=== PATIENT | female | born 1975 | race Caucasian/White ===

== ENCOUNTER 2016-10-29 09:23 | Emergency (ER) | payer OTHER ==
[~2016-10-29] VITALS: Ht 165.1 cm; Wt 63.5 kg
[~2016-10-29 09:23] MED LIST: MOBIC15 M1 PO
[2016-10-29 09:28] VITALS: BP 129/85
--- NOTE | 2016-10-29 09:38 | ED NECK/BACK PAIN COMPLAINT ---
History of Present Illness General Chief Complaint: Low Back Pain/Injury Stated Complaint: LOW BACK PAIN X 5 DAYS Source: patient Exam Limitations: no limitations Vital Signs & Intake/Output Vital Signs & Intake/Output ED Intake and Output 10/30 0000 10/29 1200 Intake Total 0 Output Total Balance 0 Intake, Oral 0 Patient 140 lb Weight Allergies Coded Allergies: iodine (RASH 07/03/16) Reconcile Medications Cyclobenzaprine HCl 10 MG TABLET 1 TAB PO QPM PRN muscle spasms Meloxicam (Mobic) 15 MG TABLET 1 TAB PO DAILY PRN pain Triage Note: COMPLAINS OF LOW BACK PAIN SINCE SATURDAY STATES THAT SHE WAS CLEANING THE HOUSE AND IT STRATED TO BOTHER HER Triage Nurses Notes Reviewed? yes Onset: Gradual Duration: day(s): (5) Timing: recent history Quality/Severity: moderate Location: lumbar spine, paraspinous muscles Radiation: none Context: turning/bending Method of Injury: twisted Loss of Consciousness: no loss of consciousness Modifying Factors: immobilization : No Patient currently breastfeeds: No HPI: Patient is a 40-year-old female presenting to the emergency Department chief complaint of low back pain after cleaning. Symptoms have been the past couple days. Pain is currently moderate worse with movement and palpation. Has been using [id number] Tylenol without relief. Denies any urinary incontinence or retention. Pain does not radiate. No history of surgical intervention on the back. Denies abdominal pain. Denies constipation. No urinary frequency urgency or dysuria. Denies chance of . (JAZZ VU) Past History Travel History Traveled to [place] past 21 day No Medical History Any Pertinent Medical History? 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 No (JAZZ VU) Review of Systems Review of Systems Constitutional: Reports: no symptoms. Comments Review of systems: See HPI, All other systems negative. Constitutional, no chills fever or weight loss HEENT: No visual changes no sore throat no congestion Cardiovascular: No chest pain Skin, no jaundice no rashes Respiratory: No dyspnea cough sputum or hemoptysis GI: No nausea no vomiting : No dysuria No hematuria Muscle skeletal: no neck pain, Neurologic: No numbness no confusion Psych: No stress anxiety Immunology: No splenectomy or history of AIDS (JAZZ VU) Physical Exam Physical Exam General Appearance: well developed/nourished, no apparent distress, alert, awake , comfortable Neck: normal inspection, supple, full range of motion, normal alignment Comments: Well-developed well-nourished person in no acute distress HEENT: Nose is atraumatic. Neck: Supple, no lymphadenopathy, normal range of motion without pain or tenderness, no C-spine tenderness. Full range of motion. Back: Tenderness palpation in the lumbar paraspinal muscles, no bony tenderness. Negative modified straight leg raise bilaterally. Pain more with forward flexion. Cardiovascular: normal JVP Respiratory: No respiratory distress. Extremity: No edema, Neuro: Alert oriented x3, motor sensory normal, patellar reflexes are 2+ bilaterally. Skin: No appreciable rash on exposed skin, skin is warm and dry. Psych: Mood and affect is normal, memory and judgment is normal. (JAZZ VU) Progress Differential Diagnosis: muscle strain, contusion, pyelonephritis, hydronephrosis , UTI, herniated disc, cauda equina Plan of Care: Current Medications Sig/Canelo Start time Last Medication Dose Stop Time Status Admin Ketorolac 30 MG ONE ONE 10/29 0945 AC Tromethamine 10/29 0946 (Toradol) Comments: Likely muscle strain. No bony tenderness of exam. Neurologically intact. No signs of cauda equina. Patient will be treated symptomatically and follow up with her primary care physician. (JAZZ VU) Departure Departure Time of Disposition: 943 Disposition: HOME OR SELF CARE Condition: Stable Clinical Impression Primary Impression: Back pain Qualifiers: Back pain location: low back pain Chronicity: unspecified Back pain laterality: bilateral Sciatica presence: without sciatica Qualified Code: M54.5 - Low back pain Referrals: PATIENT HAS NO PRIMARY CARE DR (PCP/Family) [facility]erred to [facility] No Additional Instructions: Follow-up with her primary care physician call to make an appointment. Take medications as prescribed. Avoid heavy lifting. Your prescriptions were sent to [facility] pharmacy. Departure Forms: Customer Survey General Discharge Information Prescriptions: Current Visit Scripts Cyclobenzaprine HCl 1 TAB PO QPM PRN muscle spasms #10 TAB Meloxicam (Mobic) 1 TAB PO DAILY PRN pain #30 TAB (JAZZ VU) PA/ROLL HAND Co-Sign Statement Statement: ED Attending supervision documentation- [] I saw and evaluated the patient. I have also reviewed all the pertinent lab results and diagnostic results. I agree with the findings and the plan of care as documented in the PA's/ROLL HAND's documentation. [X] I have reviewed the ED Record and agree with the PA's/ROLL HAND's documentation. [] Additions or exceptions (if any) to the PAs/ROLL HAND's note and plan are summarized below: [] (SAM HUTSON DO
[2016-10-29] MEDS ORDERED: CYCLOBENZAPRINE10 M1 PO (09:45)
[2016-10-29] MEDS ORDERED: MOBIC15 M1 PO (09:45)
[2016-10-30] MEDS ORDERED: VICODIN 5-3001 EACH PO (10:40)
== END 2016-10-29 09:53 ==
LOC: ERH 09:23
DX: M54.5 Low back pain (principal)
CPT/HCPCS: 96372; J1885

== ENCOUNTER 2016-10-30 10:24 | Emergency (ER) | payer OTHER ==
[~2016-10-30] VITALS: Ht 165.1 cm; Wt 63.5 kg
[~2016-10-30 10:24] MED LIST changes: +CYCLOBENZAPRINE10 M1 PO
[2016-10-30 10:28] VITALS: BP 142/85
--- NOTE | 2016-10-30 10:31 | ED NECK/BACK PAIN COMPLAINT ---
History of Present Illness General Chief Complaint: Low Back Pain/Injury Stated Complaint: LBP/SEEN HERE YESTERDAY FOR SAME Source: patient Exam Limitations: no limitations Vital Signs & Intake/Output Vital Signs & Intake/Output Vital Signs Date Time Temp Pulse Resp B/P Pulse O2 O2 Flow FiO2 Ox Delivery Rate 10/30 1028 96.8 77 20 142/85 99 Room Air Allergies Coded Allergies: iodine (RASH 07/03/16) Reconcile Medications Cyclobenzaprine HCl 10 MG TABLET 1 TAB PO QPM PRN muscle spasms Hydrocodone/Acetaminophen (Vicodin 5-300 MG Tablet) 5 MG-300 MG TABLET 1 TAB PO Q4-6HR PRN pain Meloxicam (Mobic) 15 MG TABLET 1 TAB PO DAILY PRN pain Triage Note: 40 Y/O FEMALE C/O CONTINUED LOW BACK PAIN; WAS EVAL'D YESTERDAY AND STATES THE MEDICATIONS SHE WAS PRESCRIBED ARENT HELPING - LAST DOSE 0600 AND 0900. Triage Nurses Notes Reviewed? yes Onset: Gradual Duration: day(s): (5) Timing: remote history Quality/Severity: moderate Location: lumbar spine, paraspinous muscles Radiation: none Context: turning/bending Method of Injury: twisted Loss of Consciousness: no loss of consciousness Modifying Factors: immobilization : No Patient currently breastfeeds: No HPI: Patient is a 40-year-old female presenting to the emergency department she complains of low back pain has been going on for the past 4-5 days. Pain started after she was bending and cleaning. Denies any falls. Pain does not radiate. Pain is achy and throbbing and worse with movement. She's been taking anti-inflammatories and muscle relaxers without relief. She was seen and evaluated here in the emergency department yesterday for the same problem and reports that the medications are not helping. She reports that she had to leave work today because the pain was getting bad. Denies any urinary symptoms. Denies any nausea vomiting fevers or chills. No chest pain or shortness of breath. Denies any urinary incontinence or retention. No lower extremity weakness. Denies any rashes. (JAZZ VU) Past History Travel History Traveled to [place] past 21 day No Medical History Any Pertinent Medical History? 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 No (JAZZ VU) Review of Systems Review of Systems Constitutional: Reports: no symptoms. Comments Review of systems: See HPI, All other systems negative. Constitutional, no chills fever or weight loss HEENT: No visual changes no sore throat no congestion Cardiovascular: No chest pain Skin, no jaundice no rashes Respiratory: No dyspnea cough sputum or hemoptysis GI: No nausea no vomiting : No dysuria No hematuria Muscle skeletal: no neck pain, Neurologic: No numbness no confusion Psych: No stress anxiety Immunology: No splenectomy or history of AIDS (JAZZ VU) Physical Exam Physical Exam General Appearance: well developed/nourished, no apparent distress, alert, awake , comfortable Neck: normal inspection, supple, full range of motion, normal alignment Comments: Well-developed well-nourished person in no acute distress HEENT: Pupils equally round and reactive to light and accommodation. Nose is atraumatic. Neck: Supple, no lymphadenopathy, normal range of motion without pain or tenderness, no C-spine tenderness. Back: Tender to palpation in the lumbar paraspinal region bilaterally, no bony tenderness. Limited range of motion especially with forward flexion. Cardiovascular: Regular rate and rhythms no murmurs rubs or gallops, normal JVP Respiratory: No respiratory distress. Extremity: No edema Neuro: Alert oriented x3, motor sensory normal, patellar reflexes are 2+ bilaterally. Skin: No appreciable rash on exposed skin, skin is warm and dry. Psych: Mood and affect is normal, memory and judgment is normal. (JAZZ VU) Progress Differential Diagnosis: cauda equina syn, herniated disc, myofascial strain, pyelo/UTI, sciatica, T/L spine injury Plan of Care: Patient started on something stronger for pain. She'll continue anti- inflammatory muscle relaxer as needed. She'll follow-up with her primary care physician. She was told that it may take several days to improve. And if symptoms not improve over the next week or so that she needs to follow up with orthopedics. (JAZZ VU) Departure Departure Time of Disposition: 1038 Disposition: HOME OR SELF CARE Condition: Stable Clinical Impression Primary Impression: Back pain Qualifiers: Back pain location: low back pain Chronicity: acute Back pain laterality: bilateral Sciatica presence: without sciatica Qualified Code: M54.5 - Low back pain Referrals: PATIENT HAS NO PRIMARY CARE DR (PCP/Family) KAIA ONEIL,CUCO Vaughn Referred to [facility] as new patient No Additional Instructions: Follow-up with your primary care physician, you can also follow up with orthopedics. Return for worsening symptoms or concerns. Continue meloxicam and Flexeril as prescribed. He can use Vicodin for severe pain. Do not drive on this medication as it can make you drowsy. Departure Forms: Customer Survey General Discharge Information Prescriptions: Current Visit Scripts Hydrocodone/Acetaminophen (Vicodin 5-300 MG Tablet) 1 TAB PO Q4-6HR PRN pain #10 TAB (JAZZ VU) PA/DEAN OF GIRLS Co-Sign Statement Statement: ED Attending supervision documentation- [] I saw and evaluated the patient. I have also reviewed all the pertinent lab results and diagnostic results. I agree with the findings and the plan of care as documented in the PA's/DEAN OF GIRLS's documentation. x I have reviewed the ED Record and agree with the PA's/DEAN OF GIRLS's documentation. [] Additions or exceptions (if any) to the PAs/DEAN OF GIRLS's note and plan are summarized below: [] (IMELDA ONEIL,JASON)
[2016-10-30] MEDS ORDERED: VICODIN 5-3001 EACH PO (10:40)
== END 2016-10-30 10:50 ==
LOC: ERH 10:24
DX: M54.5 Low back pain (principal)

== ENCOUNTER 2017-01-13 08:19 | Emergency (ER) | payer OTHER ==
[~2017-01-13] VITALS: Ht 165.1 cm; Wt 68.0 kg
[~2017-01-13 08:19] MED LIST changes: +VICODIN 5-3001 EACH PO
[2017-01-13 08:49] LABS: ABSOLUTE BASOPHIL COUNT 0.1 /CUMM (0.0-0.2); ABSOLUTE EOSINOPHIL COUNT 0.1 /CUMM (0.0-0.7); ABSOLUTE GRANULOCYTE CT 13.4 /CUMM (1.4-6.5); ABSOLUTE LYMPH COUNT 3.3 /CUMM (1.2-3.4); ABSOLUTE MONOCYTE COUNT 0.8 /CUMM (0.10-0.60); BASOPHIL % 0.4 % (0.0-2.0); EOSINOPHIL % 0.7 % (0-5); GRANULOCYTE % 75.7 % (42.2-75.2); HEMATOCRIT 48.3 % (37-47); MEAN CORPUSCULAR HGB CONC 33.7 G/DL (33.0-37.0); MEAN CORPUSCULAR VOLUME 98.1 FL (81.0-99.0); MEAN PLATELET VOLUME 7.5 FL (7.4-10.4); PLATELET COUNT 281 /CUMM (130-400); RED BLOOD CELL CT 4.92 /CUMM (4.20-5.40); WHITE BLOOD CELL COUNT 17.7 /CUMM (4.8-10.8)
--- NOTE | 2017-01-13 09:19 | ED GI/GU/ABDOMINAL COMPLAINT ---
History of Present Illness General Chief Complaint: Abdominal Pain/Flank Pain Stated Complaint: ABD PAIN, N/V/D Source: patient Exam Limitations: no limitations Vital Signs & Intake/Output Vital Signs & Intake/Output Vital Signs Date Time Temp Pulse Resp B/P Pulse O2 O2 Flow FiO2 Ox Delivery Rate 01/13 1135 96.8 70 130/66 01/13 1017 97.0 74 20 123/63 96 Room Air 01/13 0945 98.8 84 20 142/60 100 Room Air 01/13 0846 97.8 80 20 127/71 96 Room Air 01/13 0823 97.0 87 18 139/88 100 Room Air Room Air Allergies Coded Allergies: iodine (RASH 07/03/16) Reconcile Medications No Known Home Medications Triage Note: TRIAGE: 41 Y/O FEMALE PRESENTS C/O 9/10 SONYA UMBILICAL PAIN SINCE LAST NIGHT. DENIES RELIEF OF PAIN WITH MULTIPLE INTERVENTIONS AT HOME. +NAUSEA/ +VOMITING/ +DIARRHEA. Triage Nurses Notes Reviewed? yes ? n Is pt currently ? No HPI: Patient presents for evaluation of abdominal pain that began gradually yesterday. Patient describes a sensation as "like someone kicking her". She has had associated nausea vomiting and diarrhea. The pain is an intermittent pain that lasts hours at a time and resolves for minutes to hours. It is located just above the umbilicus. She states gets worse with drinking Gatorade (she hasn't eaten anything since the onset of pain). She also refers cold symptoms for the past month including cough with mild phlegm production, stuffy and congested nose without sore throat. Patient also denies dysuria. Last alcohol intake was about 2 weeks ago. She quit smoking about 6 days ago. Past History Travel History Traveled to [place] past 21 day No Medical History Any Pertinent Medical History? 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 No Review of Systems Review of Systems Constitutional: Reports: no symptoms. EENTM: Reports: see HPI. Respiratory: Reports: no symptoms. Cardiovascular: Reports: no symptoms. GI: Reports: see HPI. Genitourinary: Reports: no symptoms. Musculoskeletal: Reports: no symptoms. Skin: Reports: no symptoms. Neurological/Psychological: Reports: no symptoms. Hematologic/Endocrine: Reports: no symptoms. Immunologic/Allergic: Reports: no symptoms. All Other Systems: Reviewed and Negative Physical Exam Physical Exam Gastrointestinal: sEE BELOW Comments: Gen.: Well-nourished, well-developed, no acute respiratory distress. Head: Normocephalic, atraumatic. Eyes: Normal inspection bilaterally Ears: Normal inspection bilaterally Nose: Normal inspection Throat/mouth : Tacky mucosa Neck: Supple, full range of motion, no goiter Heart: Regular rate and rhythm, no murmurs rubs or gallops Lungs: Clear to auscultation bilaterally with normal air entry Chest: Nontender Back: Normal range of motion Abdomen: Soft, moderate epigastric tenderness with brief voluntary guarding but no rebound, nondistended, normal bowel sounds, no palpable masses or hepatosplenomegaly Extremities: Normal range of motion grossly, equal radial pulses, no cyanosis clubbing or edema Neurologic: Cranial nerves grossly intact, speech is clear Skin: warm and dry Psychiatric: Calm, cooperative, no apparent delusions or hallucinations Core Measures ACS in differential dx? No Severe Sepsis Present: No Septic Shock Present: No Progress Differential Diagnosis: appendicitis, biliary colic, bowel obstruction, cholecystitis, diverticulitis, gastritis, hepatitis, ischemic bowel, inflamm bowel dis, kidney stone, ovarian cyst, pancreatitis, peptic ulcer, PUD/GERD, UTI /pyelo Plan of Care: Orders Procedure Date/time Status URINALYSIS 01/13 1020 Complete HUMAN BETA HCG SCREEN 01/13 0927 Complete LIPASE 01/13 0832 Complete LACTIC ACID 01/13 0832 Complete COMPREHENSIVE METABOLIC PANEL 01/13 0832 Complete CBC WITHOUT DIFFERENTIAL 01/13 0832 Complete AMYLASE 01/13 0832 Complete Laboratory Tests 01/13/17 1132: Lactic Acid Cancelled 01/13/17 1021: Urine Color YEL, Urine Clarity CLEAR, Urine pH 7.5, Ur Specific [place] 1.015, Urine Protein NEG, Urine Ketones NEG, Urine Nitrite NEG, Urine Bilirubin NEG, Urine Urobilinogen 0.2, Ur Leukocyte Esterase NEG, Ur Microscopic EXAM NOT REQUIRED, Urine Hemoglobin NEG, Urine Glucose NEG 01/13/17 0927: Anion Gap 8, Estimated GFR > 60, BUN/Creatinine Ratio 28.3 H, Glucose 84, Lactic Acid 1.7, Calcium 9.6, Total Bilirubin 0.8, AST 24, ALT 31, Alkaline Phosphatase 69, Total Protein 7.3, Albumin 4.1, Globulin 3.2, Albumin/Globulin Ratio 1.3, Amylase 38, Lipase 64, Total Beta HCG NEGATIVE 01/13/17 0922: Total Beta HCG Cancelled 01/13/17 0841: CBC w Diff MAN DIFF ORDERED, RBC 4.92, MCV 98.1, MCH 33.0 H, RDW 13.0, MPV 7.5, Gran % 75.7 H, Lymphocytes % 18.4 L, Monocytes % 4.8, Eosinophils % 0.7, Basophils % 0.4, Absolute Granulocytes 13.4 H, Absolute Lymphocytes 3.3, Absolute Monocytes 0.8 H, Absolute Eosinophils 0.1, Absolute Basophils 0.1, Platelet Estimate ADEQUATE, Normocytic RBCs VERIFIED, Normochromic RBCs VERIFIED , PUBS MCHC 33.7 Diagnostic Imaging: Discussed w/RAD: CT Scan. Radiology Impression: PATIENT: YASMEEN JAIMES PRESENT AGE: 41 PATIENT ACCOUNT NO: [id number] : 76 LOCATION: [facility] ORDERING PHYSICIAN: CHUCK THAYER MD SERVICE DATE: 01/13/17 EXAM TYPE: CAT - CT ABD & PELVIS W/O IV CONTRAS EXAMINATION: CT ABDOMEN AND PELVIS WITHOUT CONTRAST CLINICAL INFORMATION: Pancreatitis. Pain. COMPARISON: None TECHNIQUE: Multidetector volumetric imaging was performed from the superior aspect of the liver through the pubic symphysis. Sagittal and coronal reformatted images were obtained on the technologist's workstation. DLP: 290 mGy-cm FINDINGS: LUNG BASES : The visualized lung bases are unremarkable. LIVER, GALLBLADDER, AND BILIARY TREE: The liver is normal in size, shape, and attenuation. No focal hepatic lesion or biliary ductal dilatation is present. Surgically absent. Clips in place. No dislodged clips. PANCREAS: No definite enlargement or inflammatory changes. Pancreatic duct appears normal. No fluid collections. SPLEEN: Unremarkable. ADRENAL GLANDS: Unremarkable. KIDNEYS AND URETERS: The kidneys are normal in size, shape, and attenuation. No hydronephrosis, hydroureter, or perinephric collection seen. No perinephric stranding. Nonobstructing right- sided low pole calyceal stone measuring 2 and 1 mm each. BLADDER: Unremarkable. GASTROINTESTINAL TRACT: The small and large bowel are unremarkable. The appendix is unremarkable. ABDOMINAL WALL: No significant hernia is appreciated. LYMPH NODES: Normal. VASCULAR: Unremarkable. PELVIC VISCERA: IUD in place. No migration. OSSEOUS STRUCTURES: Unremarkable. IMPRESSION: 1. No imaging findings of pancreatitis. Pancreatic duct and biliary tree normal. No fluid collection. 2. Tiny nonobstructing right-sided renal calculi. DICTATED BY: KATJA CABRAL MD DATE/TIME DICTATED:01/13/171146 RESEARCH AND EVALUATION MANAGER:JOSÉ MANUEL DATE/TIME TRANSCRIBED:01/13/171146 CONFIDENTIAL, DO NOT COPY WITHOUT APPROPRIATE AUTHORIZATION. <Electronically signed in Other Vendor System> SIGNED BY: KATJA CABRAL MD 01/13/17 1155 Initial ED EKG: none Comments: 01/13/2017 12:06:48 PM I have updated Yasmeen on her test results. The etiology of her pain is unclear at this point. I have asked that she follow up with her primary care doctor tomorrow. Departure Departure Disposition: HOME OR SELF CARE Condition: Stable Clinical Impression Primary Impression: Nonspecific abdominal pain Referrals: EVA ONEIL,RHIANNA Belle (PCP/Family) Additional Instructions: Zofran as needed for nausea or vomiting, Zantac as prescribed for abdominal pain. Tramadol as needed for pain. Follow-up with your primary care doctor tomorrow for reevaluation. Since the cause of your pain is unclear at this point please return if any concerns or sudden worsening. Please note that there might be incidental findings in your evaluation that are unrelated to the current emergency department visit. Please notify your primary care doctor about this emergency department visit in order to obtain and review all of the testing performed so that these incidental findings can be monitored as needed. If you had an x-ray performed, please understand that some fractures may not be seen on the initial set of x-rays. If your symptoms persist you might need a repeat set of x-rays to check for such a fracture. If you had a laceration evaluated, please understand that foreign bodies such as glass or wood may not be visible to the naked eye or on plain x-rays. If the wound becomes red, swollen, increasingly more painful or if there is any drainage from the wound, please have it reevaluated by a physician for the possibility of a retained foreign body. Thank you for choosing the [facility] Emergency Department for your care. It was a pleasure to serve you today. Chuck Thayer M.D. [facility] Departure Forms: Customer Survey General Discharge Information Prescriptions: Current Visit Scripts Ranitidine HCl (Zantac) 1 TAB PO QPM #30 TAB Ondansetron (Zofran Odt) 1 TAB SL Q6P PRN NAUSEA/VOMITING #10 TAB Tramadol HCl (Ultram) 1-2 TAB PO Q6P PRN PAIN #16 TAB
[2017-01-13 11:35] VITALS: BP 130/66
--- NOTE | 2017-01-13 11:54 | CT SCAN REPORT ---
EXAMINATION: CT ABDOMEN AND PELVIS WITHOUT CONTRAST CLINICAL INFORMATION: Pancreatitis. Pain. COMPARISON: None TECHNIQUE: Multidetector volumetric imaging was performed from the superior aspect of the liver through the pubic symphysis. Sagittal and coronal reformatted images were obtained on the technologist's workstation. DLP: 290 mGy-cm FINDINGS: LUNG BASES: The visualized lung bases are unremarkable. LIVER, GALLBLADDER, AND BILIARY TREE: The liver is normal in size, shape, and attenuation. No focal hepatic lesion or biliary ductal dilatation is present. Surgically absent. Clips in place. No dislodged clips. PANCREAS: No definite enlargement or inflammatory changes. Pancreatic duct appears normal. No fluid collections. SPLEEN: Unremarkable. ADRENAL GLANDS: Unremarkable. KIDNEYS AND URETERS: The kidneys are normal in size, shape, and attenuation. No hydronephrosis, hydroureter, or perinephric collection seen. No perinephric stranding. Nonobstructing right-sided low pole calyceal stone measuring 2 and 1 mm each. BLADDER: Unremarkable. GASTROINTESTINAL TRACT: The small and large bowel are unremarkable. The appendix is unremarkable. ABDOMINAL WALL: No significant hernia is appreciated. LYMPH NODES: Normal. VASCULAR: Unremarkable. PELVIC VISCERA: IUD in place. No migration. OSSEOUS STRUCTURES: Unremarkable. IMPRESSION: 1. No imaging findings of pancreatitis. Pancreatic duct and biliary tree normal. No fluid collection. 2. Tiny nonobstructing right-sided renal calculi.
[2017-01-13] MEDS ORDERED: ZOFRAN ODT4 M1 SL (12:17)
[2017-01-13] MEDS ORDERED: ULTRAM50 M1 PO (12:17)
[2017-01-13] MEDS ORDERED: ZANTAC300 MG PO (12:17)
== END 2017-01-13 12:49 ==
LOC: ERH 08:19
PROVIDERS: Emergency Medicine
DX: R10.13 Epigastric pain (principal); R11.2 Nausea with vomiting, unspecified
CPT/HCPCS: 74176; 81003; 96361; 96374; J2405

== ENCOUNTER 2017-04-24 08:37 | Emergency (ER) | payer SELFPAY ==
[~2017-04-24] VITALS: Ht 165.1 cm; Wt 68.0 kg
[~2017-04-24 08:37] MED LIST changes: +ULTRAM50 M1 PO; +ZANTAC300 MG PO; +ZOFRAN ODT4 M1 SL
--- NOTE | 2017-04-24 08:56 | ED GI/GU/ABDOMINAL COMPLAINT ---
History of Present Illness General Chief Complaint: Abdominal Pain/Flank Pain Stated Complaint: RT SIDE LOW BACK/FLANK PAIN Source: patient, old records Exam Limitations: no limitations Vital Signs & Intake/Output Vital Signs & Intake/Output Vital Signs Date Time Temp Pulse Resp B/P B/P Pulse O2 O2 Flow FiO2 Mean Ox Delivery Rate 04/24 1115 98.3 74 18 124/74 100 Room Air 04/24 0848 99 Room Air 04/24 0840 97.1 78 18 128/80 99 Room Air Allergies Coded Allergies: iodine (RASH 07/03/16) Reconcile Medications Ondansetron (Zofran Odt) 4 MG TAB.RAPDIS 1 TAB SL TID PRN nausea Oxycodone HCl/Acetaminophen (Percocet 5-325 MG Tablet) 5 MG-325 MG TABLET 1 TAB PO BID pain Triage Note: COMPLAINS OF SUDDEN ONSET OF R FLANK PAIN /RLQ PAIN THAT STARTED 30 MIN AGO. N/V DUE TO PAIN. DENIES URINARY SYMPTOMS Triage Nurses Notes Reviewed? yes ? N Is pt currently ? No Onset: Abrupt Duration: hour(s): (1), constant, waxing and waning Timing: recent history Quality/Severity: aching, sharpness, severe Severity Numbers: 10 Location: right flank Radiation: RLQ Activities at Onset: none Prior Abdominal Problems: none No Modifying Factors: none Associated Symptoms: nausea/vomiting HPI: 41-year-old female with history of cholecystectomy, presents to ER for evaluation bleeding of sudden onset right flank pain rating to the right lower quadrant that came on approximately 1 hour ago associated with nausea and one episode of vomiting secondary to pain. She reports the pain is waxing and waning in intensity. She is not taken anything for her symptoms. She denies urinary urgency frequency dysuria hematuria. No diarrhea and no sick contacts nothing makes the pain better or worse and is not affected by movement. The patient is on control she denies chance of . No other associated symptoms. Nausea as since resolved after vomiting (MAGALIS MYLES) Past History Travel History Traveled to [place] past 21 day No Medical History Any Pertinent Medical History? 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 No (MAGALIS MYLES) Review of Systems Review of Systems Constitutional: Reports: see HPI. All Other Systems: Reviewed and Negative Comments Review of systems: See HPI, All other systems negative. Constitutional, no chills no fever, no malaise HEENT: No visual changes no sore throat no congestion, Cardiovascular: No chest pain , no palpitation Skin: no rashes, no change in skin Respiratory: No dyspnea no cough no sputum GI: nausea vomiting, no diarrhea, no bloating/constipation : No dysuria No hematuria, Muscle skeletal: No joint pain, no back pain, no neck pain, Neurologic: no headache Psych: No stress Heme/endocrine: No bruising Immunology: No lymphadenopathy (MAGALIS MYLES) Physical Exam Physical Exam General Appearance: well developed/nourished, alert, awake Gastrointestinal: soft, non-tender Comments: Well-developed well-nourished person in no acute distress HEENT: Normal EENT exam; PERRL, EOMI, HEAD is atraumatic. moist mucous membranes. Neck: Supple, normal range of motion Back: Nontender, no CVA tenderness. Full range of motion Cardiovascular: Regular rate and rhythms no murmurs rubs Respiratory: Chest nontender.There were no bony deformities, no asymmetry. No respiratory distress. Patient speaking in full complete sentences. Breath sounds clear to auscultation bilaterally: NO W/R/R Abdomen: Soft, nontende negative Rovsing's negative after her son r nondistended , no appreciable organomegaly. Normal bowel sounds. No rebound/guarding, No appreciable enlargement of the abdominal aorta, No ascites. Extremity: No edema, full range of motion of extremities Neuro: Alert oriented x3, motor sensory normal, There were no obvious focal neurologic abnormalities. Skin: No appreciable rash on exposed skin, skin is warm and dry. Psych: Mood and affect is normal, memory and judgment is normal. Core Measures ACS in differential dx? No Severe Sepsis Present: No Septic Shock Present: No (MAGALIS MYLES) Progress Differential Diagnosis: appendicitis, bowel obstruction, colon cancer, diverticulitis, ectopic , gastritis, hepatitis, hernia, intrauterine , kidney stone, ovarian cyst, ovarian torsion, pancreatitis, PID/ cervicitis, perforated viscous, SBO, threatened AB, UTI/pyelo Plan of Care: Orders Procedure Date/time Status COMPREHENSIVE METABOLIC PANEL 04/24 852 Complete CBC WITHOUT DIFFERENTIAL 04/24 852 Complete URINE 04/24 842 Complete URINALYSIS 04/24 842 Complete Laboratory Tests 04/24/17 0900: Anion Gap 10, Estimated GFR > 60, BUN/Creatinine Ratio 20.0, Glucose 113 H, Calcium 9.2, Total Bilirubin 0.3, AST 21, ALT 28, Alkaline Phosphatase 67, Total Protein 7.0, Albumin 4.2, Globulin 2.8, Albumin/Globulin Ratio 1.5, CBC w Diff NO MAN DIFF REQ, RBC 4.42, MCV 98.4, MCH 33.0 H, RDW 13.2, MPV 7.6, Gran % 76.6 H, Lymphocytes % 18.1 L, Monocytes % 4.6, Eosinophils % 0.5, Basophils % 0.2, Absolute Granulocytes 11.4 H, Absolute Lymphocytes 2.7, Absolute Monocytes 0.7 H, Absolute Eosinophils 0.1, Absolute Basophils 0, PUBS MCHC 33.6 04/24/17 0847: Urine Color YEL, Urine Clarity CLEAR, Urine pH 6.0, Ur Specific [place] 1.020, Urine Protein NEG, Urine Ketones NEG, Urine Nitrite NEG, Urine Bilirubin NEG, Urine Urobilinogen 0.2, Ur Leukocyte Esterase NEG, Ur Microscopic EXAM NOT REQUIRED, Urine Hemoglobin NEG, Urine Glucose NEG, Urine Test NEGATIVE Labs ordered old records reviewed the patient had a CAT scan performed in December 2016 that showed she had to nonobstructing kidney stones in her right kidney. She denies history of stones in the past there were 2 mm 1 mm approximately at the time symptoms are consistent with kidney stone at this time given recent CAT scan 3 months ago and discussed with the patient plan of care medicated with Toradol and Zofran IV fluid she feels couple this plan CT 01/13/17 KIDNEYS AND URETERS: The kidneys are normal in size, shape, and attenuation. No hydronephrosis, hydroureter, or perinephric collection seen. No perinephric stranding. Nonobstructing right-sided low pole calyceal stone measuring 2 and 1 mm each. IMPRESSION: 1. No imaging findings of pancreatitis. Pancreatic duct and biliary tree normal. No fluid collection. 2. Tiny nonobstructing right-sided renal calculi. DICTATED BY: KATJA CABRAL MD DATE/TIME DICTATED:01/13/171146 SUPERVISOR CLEANING AND ANNEALING:JOSÉ MANUEL DATE/TIME TRANSCRIBED:01/13/171146 920 discussed with the patient at length all the lab results date she reports feeling improved with Toradol however given elevated white blood cell count we' ll get a CAT scan today to confirm and rule out appendicitis 1000 pain returning Dilaudid 1 mg IV ordered pending CAT scan and discussed with her at length all of her lab results Patient has had no further episodes of symptoms after being medicated Dilaudid. Discussed with her at length her CAT scan findings I discussed with the patient at length all of their results. I had an extensive conversation regarding need for close follow up with their primary care physician this week as well as return precautions. I answered all of their questions, they feel comfortable with the plan and follow-up care. I discussed with the patient/family the medications that they will receive. I gave them signs and symptoms that could indicate an adverse reaction. I have advised them to limit their activities until they can see how they respond to the medication. (BERNICE PAEZ,MAGALIS) Diagnostic Imaging: Viewed by Me: CT Scan. Discussed w/RAD: CT Scan. Radiology Impression: PATIENT: NATHAN JAIMES PRESENT AGE: 41 PATIENT ACCOUNT NO: [id number] : 76 LOCATION: [facility] ORDERING PHYSICIAN: MAGALIS PAEZ SERVICE DATE: 04/24/17 EXAM TYPE: CAT - CT ABD & PELVIS W/O IV CONTRAS EXAMINATION: CT ABDOMEN AND PELVIS WITHOUT CONTRAST CLINICAL INFORMATION: Right flank pain. Right lower quadrant pain. COMPARISON: January 13, 2017. TECHNIQUE: Contiguous axial thin section helical images of the abdomen and pelvis were performed without oral or IV contrast. The data set was reformatted in the coronal and sagittal planes and reviewed on an independent workstation. DLP: 321 mGy-cm. FINDINGS: There is mild dependent bibasilar atelectasis. The visualized lung bases are otherwise clear. The visualized portions of the heart are unremarkable. The liver is of normal size and attenuation without focal lesions nor intrahepatic biliary ductal dilation. Patient is status post cholecystectomy. Surgical clips are present. The spleen, pancreas, adrenal glands are unremarkable. Both kidneys are of normal size and attenuation without hydronephrosis. 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 There is neither mesenteric nor retroperitoneal lymphadenopathy. Normal unopacified loops of small and large bowel are identified. A normal appendix is identified. There is no pelvic free fluid. An IUD is in appropriate position. The urinary bladder is unremarkable. There is neither pelvic nor inguinal lymphadenopathy. Bone windows: Neither sclerotic nor lytic bone lesions are identified. IMPRESSION: No evidence for acute abdominal or pelvic inflammatory or infectious processes. Normal appendix. Nonobstructive right renal calculus. DICTATED BY: BRINDA HASSAN MD DATE/TIME DICTATED:04/24/171024 SUPERVISOR CLEANING AND ANNEALING:JOSÉ MANUEL DATE/TIME TRANSCRIBED:04/24/171024 CONFIDENTIAL, DO NOT COPY WITHOUT APPROPRIATE AUTHORIZATION. <Electronically signed in Other Vendor System> SIGNED BY: BRINDA HASSAN MD 04/24/17 1034 Initial ED EKG: none (MAGALIS MYLES) Departure Departure Time of Disposition: 1048 Disposition: HOME OR SELF CARE Condition: Stable Clinical Impression Primary Impression: Abdominal pain Referrals: EVA ONEIL,RHIANNA Belle (PCP/Family) Additional Instructions: Rest bland diet. Percocet if needed for breakthrough pain and Zofran if needed for nausea. Follow-up with her primary care physician return to ER with any concerns Departure Forms: Customer Survey General Discharge Information Prescriptions: Current Visit Scripts Oxycodone HCl/Acetaminophen (Percocet 5-325 MG Tablet) 1 TAB PO BID #10 TAB Ondansetron (Zofran Odt) 1 TAB SL TID PRN nausea #10 TAB (MAGALIS MYLES) PA/DOUBLE BACK OPERATOR Co-Sign Statement Statement: ED Attending supervision documentation- I saw and evaluated the patient. I have also reviewed all the pertinent lab results and diagnostic results. I agree with the findings and the plan of care as documented in the PA's/DOUBLE BACK OPERATOR's documentation. x I have reviewed the ED Record and agree with the PA's/DOUBLE BACK OPERATOR's documentation. [] Additions or exceptions (if any) to the PAs/DOUBLE BACK OPERATOR's note and plan are summarized below: [] (IMELDA ONEIL,JASON)
[2017-04-24 09:10] LABS: ABSOLUTE BASOPHIL COUNT 0 /CUMM (0.0-0.2); ABSOLUTE EOSINOPHIL COUNT 0.1 /CUMM (0.0-0.7); ABSOLUTE GRANULOCYTE CT 11.4 /CUMM (1.4-6.5); ABSOLUTE LYMPH COUNT 2.7 /CUMM (1.2-3.4); ABSOLUTE MONOCYTE COUNT 0.7 /CUMM (0.10-0.60); BASOPHIL % 0.2 % (0.0-2.0); EOSINOPHIL % 0.5 % (0-5); GRANULOCYTE % 76.6 % (42.2-75.2); HEMATOCRIT 43.5 % (37-47); MEAN CORPUSCULAR HGB CONC 33.6 G/DL (33.0-37.0); MEAN CORPUSCULAR VOLUME 98.4 FL (81.0-99.0); MEAN PLATELET VOLUME 7.6 FL (7.4-10.4); PLATELET COUNT 265 /CUMM (130-400); RBC DISTRIBUTION WIDTH 13.2 % (11.5-14.5); RED BLOOD CELL CT 4.42 /CUMM (4.20-5.40); WHITE BLOOD CELL COUNT 14.9 /CUMM (4.8-10.8)
--- NOTE | 2017-04-24 10:34 | CT SCAN REPORT ---
EXAMINATION: CT ABDOMEN AND PELVIS WITHOUT CONTRAST CLINICAL INFORMATION: Right flank pain. Right lower quadrant pain. COMPARISON: January 13, 2017. TECHNIQUE: Contiguous axial thin section helical images of the abdomen and pelvis were performed without oral or IV contrast. The data set was reformatted in the coronal and sagittal planes and reviewed on an independent workstation. DLP: 321 mGy-cm. FINDINGS: There is mild dependent bibasilar atelectasis. The visualized lung bases are otherwise clear. The visualized portions of the heart are unremarkable. The liver is of normal size and attenuation without focal lesions nor intrahepatic biliary ductal dilation. Patient is status post cholecystectomy. Surgical clips are present. The spleen, pancreas, adrenal glands are unremarkable. Both kidneys are of normal size and attenuation without hydronephrosis. 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 There is neither mesenteric nor retroperitoneal lymphadenopathy. Normal unopacified loops of small and large bowel are identified. A normal appendix is identified. There is no pelvic free fluid. An IUD is in appropriate position. The urinary bladder is unremarkable. There is neither pelvic nor inguinal lymphadenopathy. Bone windows: Neither sclerotic nor lytic bone lesions are identified. IMPRESSION: No evidence for acute abdominal or pelvic inflammatory or infectious processes. Normal appendix. Nonobstructive right renal calculus.
[2017-04-24] MEDS ORDERED: ZOFRAN ODT4 M1 SL (10:50)
[2017-04-24] MEDS ORDERED: PERCOCET 5-3251 EACH PO (10:50)
[2017-04-24 11:15] VITALS: BP 124/74
== END 2017-04-24 11:16 ==
LOC: ERH 08:37
PROVIDERS: Physician Assistant Medical
DX: R10.31 Right lower quadrant pain (principal)
CPT/HCPCS: 74176; 81003; 81025; 96374; 96375; J1885; J2405